=== PATIENT | male | born 1985 | race Caucasian/White ===

== ENCOUNTER 2017-02-10 07:07 | Emergency (ER) | payer BC ==
[2017-02-10 07:15] VITALS: BP 137/67
--- NOTE | 2017-02-10 07:29 | UC ---
Eye Complaint HPI - HPI Summary HPI Summary: bilateral eye redness x 1 day, + white discharge, no eye pain , no change if vision + nasal congestion , no cough, no fever - History of Current Complaint Chief Complaint: UCEye Stated Complaint: EYE COMPLAINT Time Seen by Provider: 02/10/17 07:21 Hx Obtained From: Patient Onset/Duration: Gradual Onset, Lasting Days - 1, Still Present Timing: Constant Severity Initially: Moderate Severity Currently: Moderate Location of Injury: Conjunctiva Aggravating Factor(s): Nothing Alleviating Factor(s): Nothing Associated Signs And Symptoms: Positive: Drainage (Purulent) - bilateral. Negative: Photophobia, Vision Impairment Bilateral, Vision Impairment Right, Vision Impairment Left, Fever, Swelling - Allergies/Home Medications Allergies/Adverse Reactions: Allergies Allergy/AdvReac Type Severity Reaction Status Date / Time No Known Allergies Allergy Verified 02/10/17 07:15 PMH/Surg Hx/FS Hx/Imm Hx Previously Healthy: Yes - Surgical History Surgical History: Yes Surgery Procedure, Year, and Place: Tonsillectomy. Left knee repair - Family History Known Family History: Negative: Diabetes - Social History Alcohol Use: None Substance Use Type: None Smoking Status (MU): Never Smoked Tobacco Review of Systems Constitutional: Negative Skin: Negative Eyes: Drainage, Eye Redness ENT: Nasal Discharge Respiratory: Cough Cardiovascular: Negative Gastrointestinal: Negative Genitourinary: Negative All Other Systems Reviewed And Are Negative: Yes Physical Exam Triage Information Reviewed: Yes Appearance: Well-Appearing, No Pain Distress, Well-Nourished Vital Signs: Initial Vital Signs Temp 97.4 F 02/10/17 07:09 Pulse 80 02/10/17 07:09 Resp 16 02/10/17 07:09 BP 137/67 02/10/17 07:09 Pulse Ox 100 02/10/17 07:09 Vital Signs Reviewed: Yes Eye Exam: Normal Eyes: Positive: Conjunctiva Inflamed - bilateral, Discharge - bilateral ENT: Positive: Normal ENT inspection, Hearing grossly normal, Pharynx normal, Nasal congestion, Nasal drainage Neck: Positive: Supple, Nontender, No Lymphadenopathy Respiratory: Positive: Chest non-tender, Lungs clear, Normal breath sounds, No respiratory distress Cardiovascular: Positive: RRR, No Murmur, Pulses Normal Skin Exam: Normal Eye Complaint Course/Dx - Differential Dx/Diagnosis Provider Diagnoses: CONJUNCTIVITIS Discharge - Discharge Plan Condition: Stable Disposition: HOME Prescriptions: Tobramycin/Dexameth OPTH.SUSP* [Tobradex 0.3-0.1%*] 1 drop BOTH EYES Q4H #1 btl Patient Education Materials: Conjunctivitis (ED) Referrals: Amy Valdes MD [Primary Care Provider] - 5 Days
== END 2017-02-10 07:32 | disposition home or self-care (01) ==
LOC: UCCORT 07:07
DX: H10.33 Unspecified acute conjunctivitis, bilateral (principal)
CPT/HCPCS: 99202; G0463

== ENCOUNTER 2017-05-10 20:30 | Emergency (ER) | payer BC ==
[2017-05-10] MEDS ORDERED: Cephalexin CAP* 500 MG PO ONE (21:32)
--- NOTE | 2017-05-10 21:32 | UC ---
Skin Complaint HPI - HPI Summary HPI Summary: Pt presents with c/o "sore on end of nose" . Pt's daughter was diagnosed and treated for impetigo and was treated with oral antibiotic as mupuricin was improving infection. Pt has been using pt's mupuricin with no imporvement. Pt reports that tip of right side nostril is crusted over each morning with sood colored crust. - History of Current Complaint Chief Complaint: UCSkin Time Seen by Provider: 05/10/17 21:29 Stated Complaint: RASH ON NOSE Hx Obtained From: Patient Onset/Duration: Sudden Onset, Lasting Days, Still Present Skin Exposure Onset/Duration: Days Ago Timing: Constant Onset Severity: Mild Current Severity: Mild Location: Discrete, Nose Character: Redness, Painful Aggravating: Touch Alleviating: Unknown Associated Signs & Symptoms: Positive: Drainage - sood, Tenderness Related History: Other: - known exposure to impetigo - Allergy/Home Medications Allergies/Adverse Reactions: Allergies Allergy/AdvReac Type Severity Reaction Status Date / Time No Known Allergies Allergy Verified 05/10/17 21:16 Review of Systems Constitutional: Negative Skin: Other - sore end of right side of nose Eyes: Negative ENT: Other - mild erythema with sood colored draiange from eraser size sore on end of right side of nose Respiratory: Negative Cardiovascular: Negative Gastrointestinal: Negative Genitourinary: Negative Motor: Negative Neurovascular: Negative Musculoskeletal: Negative Neurological: Negative Psychological: Negative All Other Systems Reviewed And Are Negative: Yes PMH/Surg Hx/FS Hx/Imm Hx Previously Healthy: Yes - Surgical History Surgical History: Yes Surgery Procedure, Year, and Place: Tonsillectomy. Left knee repair 1998 - Family History Known Family History: Negative: Diabetes - Social History Occupation: Employed Full-time Lives: With Family Alcohol Use: None Substance Use Type: None Smoking Status (MU): Never Smoked Tobacco Have You Smoked in the Last Year: No Physical Exam Triage Information Reviewed: Yes Appearance: Well-Appearing Vital Signs: Initial Vital Signs Temp 98.3 F 05/10/17 21:17 Pulse 79 05/10/17 21:17 Resp 16 05/10/17 21:17 BP 137/79 05/10/17 21:17 Pulse Ox 100 05/10/17 21:17 Vital Signs Reviewed: Yes Eye Exam: Normal ENT Exam: Other - eraser size erythematous area on end of right side of nose/ nostril with sood discharge ENT: Positive: Other: Neck exam: Normal Respiratory Exam: Normal Cardiovascular Exam: Normal Musculoskeletal Exam: Normal Neurological Exam: Normal Psychological Exam: Normal Skin Exam: Other - eraser size, erytheamtous area with sood discharge on right side of distal end of nose/nostril Course/Dx - Differential Diagnoses - Skin Complaint Differential Diagnoses: Impetigo - Diagnoses Provider Diagnoses: impetigo Discharge - Discharge Plan Condition: Stable Disposition: HOME Prescriptions: Cephalexin CAP* [Keflex 500 CAP*] 500 mg PO Q12H #10 cap Patient Education Materials: Impetigo (ED) Referrals: Jessica Boswell MD [Primary Care Provider] - If Needed
[2017-05-10 21:36] VITALS: BP 137/79
== END 2017-05-10 21:40 | disposition home or self-care (01) ==
LOC: UCCORT 20:30
DX: L01.00 Impetigo, unspecified (principal)
CPT/HCPCS: 99212; A9270-GY; G0463

== ENCOUNTER 2017-05-24 08:25 | Emergency (ER) | payer BC ==
[2017-05-24 08:44] VITALS: BP 129/80
--- NOTE | 2017-05-24 08:53 | UC ---
Skin Complaint HPI - HPI Summary HPI Summary: 3 areas of scaly, yellow colored lesions on the face, under the nose, on the cheek and forhead, has been using muciprocin with some relief. - History of Current Complaint Chief Complaint: UCSkin Time Seen by Provider: 05/24/17 08:41 Stated Complaint: RASH Hx Obtained From: Patient Onset/Duration: Sudden Onset, Lasting Days Skin Exposure Onset/Duration: Days Ago Timing: Constant Onset Severity: Moderate Current Severity: Moderate Location: Face Aggravating: Nothing Alleviating: Nothing - Allergy/Home Medications Allergies/Adverse Reactions: Allergies Allergy/AdvReac Type Severity Reaction Status Date / Time No Known Allergies Allergy Verified 05/24/17 08:31 Home Medications: Home Medications Misc Natural Products [Osteo Bi-Flex Joint Shiel] 2 tab PO DAILY 05/24/17 [ History Confirmed 05/24/17] Mupirocin 2% CREAM* [Bactroban 2% CREAM*] 1 applic TOPICAL BID PRN 05/24/17 [ History Confirmed 05/24/17] Review of Systems Constitutional: Negative Skin: Rash Eyes: Negative ENT: Negative Respiratory: Negative Cardiovascular: Negative Gastrointestinal: Negative Genitourinary: Negative Motor: Negative Neurovascular: Negative Musculoskeletal: Negative Neurological: Negative Psychological: Negative All Other Systems Reviewed And Are Negative: Yes PMH/Surg Hx/FS Hx/Imm Hx Previously Healthy: Yes - Surgical History Surgical History: Yes Surgery Procedure, Year, and Place: Tonsillectomy. Left knee repair - Family History Known Family History: Negative: Diabetes - Social History Alcohol Use: Rare Substance Use Type: None Smoking Status (MU): Never Smoked Tobacco Have You Smoked in the Last Year: No Physical Exam Triage Information Reviewed: Yes Appearance: Well-Appearing, Well-Nourished, Pain Distress Vital Signs: Initial Vital Signs Temp 98.1 F 05/24/17 08:33 Pulse 77 05/24/17 08:33 Resp 16 05/24/17 08:33 BP 129/80 05/24/17 08:33 Pulse Ox 100 05/24/17 08:33 Vital Signs Reviewed: Yes Eye Exam: Normal ENT Exam: Normal Dental Exam: Normal Neck exam: Normal Respiratory Exam: Normal Cardiovascular Exam: Normal Abdominal Exam: Normal Bowel Sounds: Positive: Present Musculoskeletal Exam: Normal Neurological Exam: Normal Skin: Positive: rashes - 3 mitzi of yellowish crusty patches, the one under the nose draining clear fluid Course/Dx - Course Course Of Treatment: hx obtained, exam performed ,meds reviewed, treated for impetigo - Differential Diagnoses - Skin Complaint Differential Diagnoses: Abscess, Impetigo, Medication; Adverse Reaction, Urticaria - Diagnoses Provider Diagnoses: impetigo Discharge - Discharge Plan Condition: Stable Disposition: HOME Patient Education Materials: Impetigo (ED) Additional Instructions: 1. Use the medication as prescribed. 2. Keep draining areas covered 3. Follow up if symptoms continue to progress.
== END 2017-05-24 09:02 | disposition home or self-care (01) ==
LOC: UCCORT 08:25
DX: L01.00 Impetigo, unspecified (principal)
CPT/HCPCS: 99212; G0463

== ENCOUNTER 2017-12-19 13:52 | Emergency (ER) | payer BC ==
--- NOTE | 2017-12-19 15:09 | UC ---
Back Pain HPI - HPI Summary HPI Summary: 32 yo Wm c/o acute sacral and coccygeal pain x 2-3 days s/p reaching for a bottle in the bottom shelf, also c/o chills and achiness x few days, s/p one course of outpt po abx but still c/o some residual throat pains. - History of Current Complaint Chief Complaint: UCBackPain Stated Complaint: BACK PAIN,SORE THROAT Time Seen by Provider: 12/19/17 14:52 Hx Obtained From: Patient Onset/Duration: Lasting Days Timing: Constant Pain Intensity: 6 Aggravating Factor(s): Movement Alleviating Factor(s): Rest - Allergies/Home Medications Allergies/Adverse Reactions: Allergies Allergy/AdvReac Type Severity Reaction Status Date / Time No Known Allergies Allergy Verified 12/19/17 14:11 Home Medications: Home Medications Acetaminophen 650 mg PO ONCE PRN 12/19/17 [History Confirmed 12/19/17] Ibuprofen TAB* [Advil TAB*] 600 mg PO ONCE PRN 12/19/17 [History Confirmed 12/19] PMH/Surg Hx/FS Hx/Imm Hx - Additional Past Medical History Additional PMH: none Previously Healthy: Yes - Surgical History Surgical History: Yes Surgery Procedure, Year, and Place: Tonsillectomy. Left knee repair - Family History Known Family History: Negative: Diabetes - Social History Alcohol Use: Rare Substance Use Type: None Smoking Status (MU): Never Smoked Tobacco Have You Smoked in the Last Year: No Review of Systems Constitutional: Chills, Fatigue Skin: Negative Eyes: Negative ENT: Sore Throat Cardiovascular: Negative Gastrointestinal: Negative Genitourinary: Negative Motor: Negative Neurovascular: Negative Musculoskeletal: Decreased ROM, Other: - LBP Neurological: Negative Psychological: Negative All Other Systems Reviewed And Are Negative: Yes Physical Exam Triage Information Reviewed: Yes Appearance: Well-Appearing Vital Signs: Initial Vital Signs Temp 36.2 C 12/19/17 14:06 Pulse 108 12/19/17 14:06 Resp 16 12/19/17 14:06 BP 124/81 12/19/17 14:06 Pulse Ox 97 12/19/17 14:06 Eye Exam: Normal ENT: Positive: Pharyngeal erythema Dental Exam: Normal Neck exam: Normal Neck: Positive: 1 Respiratory Exam: Normal Cardiovascular Exam: Normal Abdominal Exam: Normal Musculoskeletal: Positive: Other: - sacral and coccygeal tenderness in certain positions, ROM restricted due to pain Neurological Exam: Normal Neurological: Positive: Alert, Other: - mild radiculopathy from coccyx to left buttock intermittently Psychological Exam: Normal Skin Exam: Normal Back Pain Course/Dx - Course Course Of Treatment: XR of lumbaosacrum and coccyx- no acute fx noted but there is some narrowing of L5 and S1disc space. If pain and radiculopathy persists follow up with neurosurgery and further evaluation with possible MRI - Differential Dx/Diagnosis Provider Diagnoses: sacral and coccygeal paraspinal spasm. Recurrent strep pharyngitis Discharge - Discharge Plan Condition: Stable Disposition: HOME Prescriptions: ceFUROXime TAB(*) [Ceftin TAB 250 MG(*)] 500 mg PO BID 7 Days #14 tab tiZANidine TAB* [Zanaflex TAB*] 4 mg PO BEDTIME 5 Days #5 tab Patient Education Materials: Strep Throat (ED), Muscle Spasm (ED) Referrals: Jessica Boswell MD [Primary Care Provider] - Reji Rich MD [Medical Doctor] - Additional Instructions: follow up with neurosurgery
--- NOTE | 2017-12-19 15:43 | RAD ---
HISTORY: Low back pain, sacral pain COMPARISONS: None VIEWS: 3, frontal, outlet, and lateral views of the sacrum and coccyx FINDINGS: BONE DENSITY: Normal. BONES: There is no displaced fracture. JOINTS: There is no arthropathy. ALIGNMENT: There is no dislocation. SOFT TISSUES: Unremarkable. OTHER FINDINGS: None. IMPRESSION: NO ACUTE OSSEOUS INJURY OF THE SACRUM AND COCCYX. PLAIN FILMS ARE RELATIVELY INSENSITIVE TO NONDISPLACED FRACTURES OF THE SACRUM AND COCCYX. IF THERE IS PERSISTENT CLINICAL CONCERN FOR SACROCOCCYGEAL OSSEOUS PATHOLOGY, BONE SCANNING MAY BE MORE SENSITIVE
--- NOTE | 2017-12-19 15:43 | RAD ---
HISTORY: Low back pain, left medial leg pain, sacrococcygeal pain COMPARISONS: None VIEWS: 3 , Frontal, lateral, and coned-down lateral sacral views of the lumbar spine FINDINGS: ALIGNMENT: The alignment is normal. VERTEBRAL BODIES: The vertebral body heights are normal. The interpedicular distances are normal. JOINTS: The facet joints are normal. INTERVERTEBRAL DISCS: There is mild loss of intervertebral disc height at L5-S1. SOFT TISSUE: Unremarkable. OTHER: The pelvis is unremarkable. The lung bases are clear. IMPRESSION: MILD DEGENERATIVE DISC DISEASE
[2017-12-19 16:03] VITALS: BP 135/78
== END 2017-12-19 16:35 | disposition home or self-care (01) ==
LOC: UCEAST 13:52
DX: M62.830 Muscle spasm of back (principal); J02.0 Streptococcal pharyngitis
CPT/HCPCS: 72100; 72220; 81003; 87502; 87651; 99212; G0463

== ENCOUNTER 2018-05-03 17:36 | Emergency (ER) | payer BC ==
[2018-05-03 19:16] VITALS: BP 125/83
[2018-05-03] MEDS ORDERED: Amoxicillin PO (*) 500 MG CAP PO ONE (19:53)
--- NOTE | 2018-05-03 19:55 | UC ---
UC General HPI - HPI Summary HPI Summary: sore throat and sweaty with chills x 3 days. children with strep throat - History of Current Complaint Chief Complaint: UCGeneralIllness Stated Complaint: SORE THROAT,CHILLS Time Seen by Provider: 05/03/18 19:48 Hx Obtained From: Patient Onset/Duration: Gradual Onset Timing: Constant Pain Intensity: 2 Aggravating: nothing Alleviating: nothing Associated Signs & Symptoms: Positive: Fever - Allergy/Home Medications Allergies/Adverse Reactions: Allergies Allergy/AdvReac Type Severity Reaction Status Date / Time No Known Allergies Allergy Verified 05/03/18 19:16 PMH/Surg Hx/FS Hx/Imm Hx Previously Healthy: Yes - Surgical History Surgical History: Yes Surgery Procedure, Year, and Place: Tonsillectomy. Left knee repair - Family History Known Family History: Positive: None Negative: Diabetes - Social History Occupation: Employed Full-time Lives: With Family Alcohol Use: Rare Substance Use Type: None Smoking Status (MU): Never Smoked Tobacco Have You Smoked in the Last Year: No - Immunization History Vaccination Up to Date: Yes Review of Systems Constitutional: Fever, Chills Skin: Negative Eyes: Negative ENT: Sore Throat Respiratory: Negative Cardiovascular: Negative Gastrointestinal: Negative Genitourinary: Negative Motor: Negative Neurovascular: Negative Musculoskeletal: Negative Neurological: Negative Psychological: Negative Is Patient Immunocompromised?: No All Other Systems Reviewed And Are Negative: Yes Physical Exam Triage Information Reviewed: Yes Appearance: Well-Appearing Vital Signs: Initial Vital Signs Temp 100 F 05/03/18 19:11 Pulse 124 05/03/18 19:11 Resp 16 05/03/18 19:11 BP 125/83 05/03/18 19:11 Pulse Ox 100 05/03/18 19:11 Vital Signs Reviewed: Yes Eyes: Positive: Conjunctiva Clear ENT: Positive: Pharyngeal erythema, TMs normal, Uvula midline. Negative: Nasal congestion, Nasal drainage, Tonsillar swelling, Tonsillar exudate, Trismus, Muffled voice, Hoarse voice Neck: Positive: Supple, Nontender, Enlarged Nodes @ - peritonsilar Respiratory: Positive: Lungs clear, Normal breath sounds Cardiovascular: Positive: RRR, No Murmur Abdomen Description: Positive: Nontender, No Organomegaly, Soft Bowel Sounds: Positive: Present Musculoskeletal: Positive: ROM Intact Neurological: Positive: Alert Psychological: Positive: Age Appropriate Behavior Skin Exam: Normal Diagnostics - Laboratory Diagnostic Studies Completed/Ordered: rapid strep is + Course/Dx - Differential Dx - Multi-Symptom Provider Diagnoses: strep throat Discharge - Sign-Out/Discharge Documenting (check all that apply): Patient Departure - Discharge Plan Condition: Stable Disposition: HOME Prescriptions: Amoxicillin PO (*) [Amoxicillin 500 MG CAP*] 500 mg PO Q12H #20 cap Patient Education Materials: Strep Throat (DC) Referrals: Jessica Boswell MD [Primary Care Provider] - 7 Days - Billing Disposition and Condition Condition: STABLE Disposition: Home
== END 2018-05-03 20:03 | disposition home or self-care (01) ==
LOC: UCCORT 17:36
DX: J02.0 Streptococcal pharyngitis (principal)
CPT/HCPCS: 87651; 99212; A9270-GY; G0463

== ENCOUNTER 2018-06-27 21:28 | Emergency (ER) | payer BC ==
[2018-06-27 21:49] VITALS: BP 137/62
--- NOTE | 2018-06-27 22:08 | UC ---
Lower Extremity/Ankle HPI - HPI Summary HPI Summary: Right great toe has ingrown toenail for several days, for the past few patient has noticed bloody discharge on its borders and has been draining it twice daily. He states he has soaked toe in Epson salts but nail continues to supurate. - History of Current Complaint Chief Complaint: UCLowerExtremity Stated Complaint: SORE RIGHT BIG TOE Time Seen by Provider: 06/27/18 21:59 Hx Obtained From: Patient Onset/Duration: Sudden Onset Severity Initially: Mild Severity Currently: None Pain Intensity: 3 Aggravating Factor(s): Standing, Ambulation Alleviating Factor(s): Rest, Elevation Able to Bear Weight: Yes - Risk Factors Gout Risk Factors: Negative DVT Risk Factors: Negative Septic Arthritis Risk Factor: Negative - Allergies/Home Medications Allergies/Adverse Reactions: Allergies Allergy/AdvReac Type Severity Reaction Status Date / Time No Known Allergies Allergy Verified 06/27/18 21:47 Home Medications: Home Medications Cetirizine* [ZyrTEC 10 MG TAB*] 10 mg PO DAILY 06/27/18 [History Confirmed 06/27] PMH/Surg Hx/FS Hx/Imm Hx Previously Healthy: Yes - Surgical History Surgical History: Yes Surgery Procedure, Year, and Place: Tonsillectomy. Left knee repair - Family History Known Family History: Positive: Cardiac Disease Negative: Diabetes - Social History Alcohol Use: None Substance Use Type: None Smoking Status (MU): Never Smoked Tobacco Have You Smoked in the Last Year: No - Immunization History Most Recent Tetanus Shot: UTD Vaccination Up to Date: Yes Review of Systems Constitutional: Negative Musculoskeletal: Other: - discharge from toenail All Other Systems Reviewed And Are Negative: Yes Physical Exam Triage Information Reviewed: Yes Appearance: Well-Appearing, No Pain Distress, Well-Nourished Vital Signs: Initial Vital Signs Temp 97.9 F 06/27/18 21:42 Pulse 71 06/27/18 21:42 Resp 14 06/27/18 21:42 BP 137/62 06/27/18 21:42 Pulse Ox 100 06/27/18 21:42 Vital Signs Reviewed: Yes Eyes: Positive: Conjunctiva Clear ENT: Positive: Hearing grossly normal Neck: Positive: Supple Musculoskeletal: Positive: Strength Intact, ROM Intact, No Edema, Other: - erythema on distal half of right toe, serosanguin d/c on medial aspect of nailbed. No fluctuation, no induration of surrounding soft tissue. Neurological: Positive: Alert, Muscle Tone Normal Psychological: Positive: Age Appropriate Behavior Skin Exam: Normal Lower Extremity Course/Dx - Course Course Of Treatment: Patient with paronychia of right big toe, mininally inbedded toenail on medial aspect of nailbed, to start keflex as prescribed for 5 days, follow up with podiatry. - Differential Dx/Diagnosis Provider Diagnoses: paronychia. ingrown toe nail Discharge - Sign-Out/Discharge Documenting (check all that apply): Patient Departure All imaging exams completed and their final reports reviewed: No Studies - Discharge Plan Condition: Stable Disposition: HOME Prescriptions: Cephalexin CAP* [Keflex CAP*] 500 mg PO TID 5 Days #15 cap Patient Education Materials: Cephalexin (By mouth), Paronychia (ED) Referrals: Jessica Boswell MD [Primary Care Provider] - - Billing Disposition and Condition Condition: STABLE Disposition: Home
[2018-06-27] MEDS ORDERED: Cephalexin CAP* 500 MG PO ONE (22:16)
== END 2018-06-27 22:27 | disposition home or self-care (01) ==
LOC: UCCORT 21:28
CPT/HCPCS: 99212; A9270-GY; G0463

== ENCOUNTER 2018-12-19 13:57 | Emergency (ER) | payer BC ==
[2018-12-19] MEDS ORDERED: Tetan/Diph/Pertus SYR(Tdap)* 0.5 ML SYR(BOOSTRIX) use SYR IM ONE (14:07)
[2018-12-19 14:16] VITALS: BP 130/74
--- NOTE | 2018-12-19 14:19 | UC ---
Hand/Wrist HPI - HPI Summary HPI Summary: 33 yo male presents with left thumb nail injury. He tells me that about 30min [employer] he was using a drill and it slipped and the drill bit went into the center of his left thumbnail. He washed the area, applied a bandage, and came to . Thinks his last tetanus was 3 years ago. - History Of Current Complaint Chief Complaint: UCLaceration Stated Complaint: PUNCTURE WOUND Time Seen by Provider: 12/19/18 14:19 Hx Obtained From: Patient Onset/Duration: Sudden Onset Severity Initially: Moderate Severity Currently: Mild Pain Intensity: 4 Pain Scale Used: 0-10 Numeric - Allergies/Home Medications Allergies/Adverse Reactions: Allergies Allergy/AdvReac Type Severity Reaction Status Date / Time No Known Allergies Allergy Verified 12/19/18 14:10 Home Medications: Home Medications Glucosamine/D3/Boswellia Jaimee [Osteo Bi-Flex Tablet] 1 each PO DAILY 12/19/18 [ History Confirmed 12/19/18] PMH/Surg Hx/FS Hx/Imm Hx - Additional Past Medical History Additional PMH: None - Surgical History Surgical History: Yes Surgery Procedure, Year, and Place: Tonsillectomy. Left knee repair - Family History Known Family History: Positive: None, Cardiac Disease Negative: Diabetes - Social History Occupation: Employed Full-time Lives: With Family Alcohol Use: None Substance Use Type: None Smoking Status (MU): Never Smoked Tobacco Have You Smoked in the Last Year: No - Immunization History Most Recent Tetanus Shot: UTD Vaccination Up to Date: Yes Review of Systems All Other Systems Reviewed And Are Negative: Yes Constitutional: Positive: Negative Skin: Positive: Other - Left nail puncture wound Respiratory: Positive: Negative Cardiovascular: Positive: Negative Gastrointestinal: Positive: Negative Neurovascular: Positive: Negative Neurological: Positive: Negative Psychological: Positive: Negative Physical Exam - Summary Physical Exam Summary: GENERAL: NAD. WDWN. No pain distress. SKIN: LEFT THUMB: Nail with central puncture wound partially through the nail bed. Splintering of the nail in an oblique fashion distally through the nail plate with partial avulsion. Scant bleeding. Appears clean and without FB. CHEST: No accessory muscle use. Breathing comfortably and in no distress. CV: Pulses intact. Cap refill <2seconds MSK: Left thumb FROM. NEURO: Alert. PSYCH: Age appropriate behavior. Triage Information Reviewed: Yes Vital Signs: Initial Vital Signs Temp 97.5 F 12/19/18 14:12 Pulse 76 12/19/18 14:12 Resp 18 12/19/18 14:12 BP 130/74 12/19/18 14:12 Pulse Ox 99 12/19/18 14:12 Vital Signs Reviewed: Yes Procedures - Laceration/Wound Repair 1 Location: Other - finger Description: Irregular Betadine Prep?: No Irrigated w/ Saline (ccs): 250 Laceration/Wound Explored: clean Layer Closure?: No Sterile Dressing Applied?: Yes - xeroform Hand/Wrist Course/Dx - Course Course Of Treatment: XR: REPORT AND IMPRESSION: #. Irregularity at the distal nailbed with subcutaneous emphysema and suggestion of. punctate submillimeter radiopaque foreign bodies at the puncture site. Negative for. fracture or malalignment. The procedure was explained to the pt and all questions were answered. A time out was performed, witnessed, and signed. The area was irrigated with 250mL sterile saline. The partially avulsed nail plate would be catching on cloths and other materials - therefore was decided to be removed. Easily removed with iris scissors. Pt tolerated well. The wound was bandaged with xeroform and telfa. - Differential Dx/Diagnosis Provider Diagnosis: Puncture wound of thumb without foreign body with damage to nail, Nail avulsion , finger Discharge - Sign-Out/Discharge Documenting (check all that apply): Patient Departure All imaging exams completed and their final reports reviewed: Yes - Discharge Plan Condition: Stable Disposition: HOME Patient Education Materials: Nail Avulsion (ED), Nail Removal (ED) Referrals: Jessica Boswell MD [Primary Care Provider] - Additional Instructions: If you develop a fever, shortness of breath, chest pain, new or worsening symptoms - please call your PCP or go to the ED. 1) Keep the dressing clean, dry, and intact for the next 2-3 days - may change the outer layer of the dressing if it gets soiled 2) Keep covered at all times until well healed - Billing Disposition and Condition Condition: STABLE Disposition: Home - Attestation Statements Provider Attestation: I was available for consult. This patient was seen by the JOSSE. The patient was not presented to, seen by, or examined by me. -Noel
[2018-12-19] MEDS ORDERED: Lidocaine 2% PF * 5 ML VIAL INJ ONE (14:26)
[2018-12-19] MEDS ORDERED: Ibuprofen TAB* 600 MG PO ONE (14:26)
== END 2018-12-19 15:05 | disposition home or self-care (01) ==
LOC: UCEAST 13:57
DX: S61.132A Puncture wound without foreign body of left thumb with damage to nail, initial encounter (principal); S61.102A Unspecified open wound of left thumb with damage to nail, initial encounter; W29.8XXA Contact with other powered hand tools and household machinery, initial encounter; Y92.9 Unspecified place or not applicable
CPT/HCPCS: 11730; 99211; A9270-GY; G0463

== ENCOUNTER 2019-02-10 12:48 | Emergency (ER) | payer BC ==
--- OUTSIDE RECORDS SUMMARY | 2019-02-10 13:10 | XMS REPORT | Continuity of Care Document ---
:1985 External Reference #:[id number] Author Name Rosa Grier Care Team Providers Name Role Phone Jessica Boswell MD Primary Care Physician Unavailable Payers Date Identification Numbers Payment Provider Subscriber Effective: 2013 Policy Number: [id number] [employer] Gabriela Riddle PayID: [id number] [address] [address] JAYLA Garcia [address] Effective: 2011 Policy Number: [id number] [employer] Josh Riddle Expires: 2013 PayID: [id number] [address] [address] JAYLA Garcia [address] Advance Directives Description No Information Available Problems Date Description Provider Status Onset: 12/23/2017 Lumbar radiculopathy Reji Rich M.D. Active Onset: 07/31/2011 Lyme disease Amy Valdes M.D. 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 Doxycycline 09/21/ Active Capsules 100mg 42caps 01/24/19 A69.20 Steph Monohydrate 2018 reports MD Alphonso not taking si bid x 21 days Culturelle 12/06/ Active Capsules Jessica 2018 Mirian Boswell Arm Strap White 10/24/ Active Misc 1units apply to 719.43 Amy 2013 affected Valdes, arm just M.D. below elbow when active Osteo Bi-Flex 01/24/ Active Tablets 250-200mg 2 po qd Amy Regular 2012 Sabrina Valdes M.D. Zyrtec Allergy / Active Capsules 10mg 30caps 1 po qd Amy Mirian Valdes Ibuprofen / Active Capsules 200mg as needed Unknown Cephalexin 07/29/ Hx Tablets 500mg 21tabs 1 by mouth 2017 - three Elbert, 09/20/ times a M.D. 2017 day x 7 days Amoxicillin 05/03/ Hx Capsules 500mg 20caps Q12H Unknown 2017 - 2017 Aleve 12/06/ Hx Capsules 220mg Jessica 2018 - Elbert, 12/23/ M.D. 2017 Amoxicillin 12/06/ Hx Tablets 500mg 30tabs 1 by mouth 2017 - three Elbert, 12/16/ times a M.D. 2018 day x 10 days Augmentin 04/27/ Hx Tablets 875-125mg 20tabs one by Charis 2012 - mouth Lozano-You 10/24/ every 12 Mirian [place] 2014 hours for ten days Ibuprofen 04/27/ Hx Tablets 600mg 90tabs tid Charis 2012 - Lozano-You 12/06/ Mirian [place] 2017 Doxycycline / Hx Capsules 100mg 14caps One tablet Amy Hyclate 0000 - twice Keisha, 01/24/ daily M.D. 2012 until gone Tizanidine HCL / Hx Tablets 4mg Unknown 0000 - 2017 Immunizations CPT Code Status Date Vaccine Reaction Lot # [id number] Given 09/02/2016 Tdap - no immediate reaction [id number] Tetanus/Diptheria/Acellu noted ... hh lar Pertussis [id number] Given 09/02/2016 Influ Virus Vaccine, no reaction noted ,,, [id number] Quadrivalent, Split hh Virus, Im Fluzone not PF [id number] Given 10/01/2014 Fluzone Vaccine [id number] Given 07/31/2011 Influenza Virus 3Yrs & [id number] Over Vital Signs Date Vital Result Comment 01/24/2019 3:56pm Height 76 inches 6'4" Weight 224.00 lb Heart Rate 82 /min BP Systolic Sitting 141 mmHg BP Diastolic Sitting 83 mmHg Body Temperature 97.5 F O2 % BldC Oximetry 98 % BMI (Body Mass Index) 27.3 kg/m2 09/23/2018 11:49am Height 76 inches 6'4" Weight 228.00 lb Heart Rate 78 /min BP Systolic Sitting 118 mmHg BP Diastolic Sitting 88 mmHg O2 % BldC Oximetry 98 % BMI (Body Mass Index) 27.8 kg/m2 09/21/2018 1:00pm Height 76 inches 6'4" Weight 227.00 lb Heart Rate 89 /min BP Systolic Sitting 121 mmHg BP Diastolic Sitting 75 mmHg Body Temperature 97.3 F O2 % BldC Oximetry 98 % BMI (Body Mass Index) 27.6 kg/m2 07/29/2018 4:41pm Height 76 inches 6'4" Weight 227.00 lb Heart Rate 89 /min BP Systolic Sitting 120 mmHg BP Diastolic Sitting 78 mmHg O2 % BldC Oximetry 99 % BMI (Body Mass Index) 27.6 kg/m2 01/13/2018 1:54pm Height 76 inches 6'4" Weight 230.00 lb Heart Rate 70 /min BP Systolic Sitting 110 mmHg BP Diastolic Sitting 70 mmHg Pain Level 2 BMI (Body Mass Index) 28.0 kg/m2 12/23/2017 3:10pm Height 76 inches 6'4" Weight 230.00 lb BP Systolic Sitting 130 mmHg BP Diastolic Sitting 80 mmHg Pain Level 5 BMI (Body Mass Index) 28.0 kg/m2 09/02/2016 9:41am Weight 237.00 lb Heart Rate 98 /min BP Systolic Sitting 124 mmHg BP Diastolic Sitting 80 mmHg Respiratory Rate 15 /min Body Temperature 98.4 F O2 % BldC Oximetry 98 % 03/15/2014 8:40am Weight 243.00 lb Heart Rate 100 /min BP Systolic Sitting 132 mmHg BP Diastolic Sitting 80 mmHg 10/24/2013 11:14am Weight 239.00 lb Heart Rate 70 /min BP Systolic Sitting 122 mmHg BP Diastolic Sitting 80 mmHg 02/16/2013 3:55pm Weight 229.00 lb Heart Rate 72 /min BP Systolic Sitting 128 mmHg BP Diastolic Sitting 84 mmHg 01/24/2013 3:43pm Weight 230.00 lb Heart Rate 70 /min BP Systolic Sitting 130 mmHg BP Diastolic Sitting 84 mmHg 07/31/2011 10:45am Height 75.50 inches 6'3.50" Weight 214.00 lb Heart Rate 72 /min BP Systolic Sitting 122 mmHg l BP Diastolic Sitting 84 mmHg l Body Temperature 97.6 F BMI (Body Mass Index) 26.4 kg/m2 Results Test Date Facility Test Result H/L Range Note Laboratory test [facility] Culture SEE RESULT 1, 2 finding [address] [place] [address] [phone] Laboratory test [facility] Rapid Strep Negative Negative 3 finding [address] [place] [address] [phone] Laboratory test [facility] Rapid Strep POSITIVE Abnormal Negative 4 finding [address] [place] [address] [phone] Poc Urinalysis [facility] Poc Glucose, Negative Negative [address] [place] [address] [phone] Poc Bilirubin, Urine Negative Negative Poc Ketone, Urine Negative Negative Poc Specific [place], Urine <=1.005 Low 1.010-1.030 Poc Blood, Urine Trace-lysed Abnormal Negative Poc pH, Urine 6.0 N 5-9 Poc Protein, Urine Negative Negative Poc Urobilinogen, Urine 0.2 Negative Poc Nitrite, Urine Negative Negative Poc Leukocytes, Urine Negative Negative Poc Color, Urine Yellow Poc Clarity, Urine Clear 5 Rapid Influenza 12/19/2017 [facility] Influenza A NEGATIVE Negative 6 A & B Molecular [address] [place] [address] [phone] Influenza B Molecular NEGATIVE Negative Laboratory 12/19/2017 [facility] Rapid Strep POSITIVE Abnormal Negative 7 test finding [address] [place] [address] [phone] Basic 01/24/2013 [facility] Sodium 140 mmol/L 133-[address] [place] [address] [phone] Potassium 4.1 mmol/L 3.5-5.0 Chloride 103 mmol/L 101-111 Co2 Carbon Dioxide 30.0 mmol/L 22-32 Anion Gap 7.0 mmol/L 2-11 Glucose 82 mg/dL 70-100 Blood Urea Nitrogen 17 mg/dL 6-24 Creatinine 1.10 mg/dL 0.50-1.40 BUN/Creatinine Ratio 15.5 8-20 Calcium 9.8 mg/dL 8.1-9.9 Egfr Non- 79.1 >60 Egfr 101.8 >60 8 Laboratory test 01/24/2013 [facility] TSH (Thyroid 1.27 miu/mL 0.34-5.[address] [place] [address] Horm) [phone] Laboratory test 07/22/2011 [facility] Lyme Disease Negative Negative [address] [place] [address] [phone] 1 [id number] 2 SEE RESULT BELOW Name: JOSH RIDDLE : [address]: Pete Do MD Acct: [id number] Unit: [id number] AGE: 33 Location: [facility] Re06/21/18 SEX: M Status: DEP ER SPEC: [id number] GRISELDA: 06/21/18-1420 [facility] DR: Carolynn CABRERA REQ: [id number] RECD: 06/21/186949 STATUS: COMP [facility] DR: Jessica Do MD _ SOURCE: THROAT SPDESC: ORDERED: Throat Culture COMMENTS: [id number] Procedure Result Reported Site Throat Culture Final 06/23/18- 1130 ML Organism 1 NORMAL KIA Quantity 1+ Throat cultures are clinically indicated to detect the presence of group A strep, arcanobacterium and yeast. In certain cases, predominating organisms will be reported. * ML - Main Lab . END OF REPORT DEPARTMENT OF PATHOLOGY, [address] [place] [address] Marlon Guerra M.D. Director [facility] # [id number] 3 Swimming Coach: [id number] Swimming Coach: [id number] Swimming Coach: [id number] Swimming Coach: [id number] Swimming Coach: [id number] 8 Because ethnic data is not always readily available, this report includes an eGFR for both -Americans and non- Americans. The National Kidney Disease Education Program (NKDEP) does not endorse the use of the MDRD equation for patients that are not between the ages of 18 and 70, are , have extremes of body size, muscle mass, or nutritional status, or are non- or non-. According to the National Kidney Foundation, irrespective of diagnosis, the stage of the disease is based on the level of kidney function: Stage Description GFR(mL/min/1.73 m(2)) 1 Kidney damage with normal or decreased GFR 90 2 Kidney damage with mild decrease in GFR 60-89 3 Moderate decrease in GFR 30-59 4 Severe decrease in GFR 15-29 5 Kidney failure <15 (or dialysis) 9 Serologic response to B. burgdorferi infection is not detected, but cannot rule out early infection during which low or undetectable antibody levels to B. burgdorferi may be present. If clinically indicated, a new serum specimen should be submitted in 7-14 days. Test Performed by: [facility] Dpt of Lab Med and Pathology [address] [place] [id number] Wastewater Design Engineer: Solomon Gilbert III, M.D. Procedures Date Code Description Status 06/07/2013 10874 Inc & Removal Foreign Body Subcutaneous Tissues Completed 04/27/2013 31797 Short Arm Splint Application Completed 04/27/2013 59133 Short Arm Splint Application Completed 02/02/2013 62428 Holter Monitor Review (24 hr)dr review & interp only Completed 02/01/2013 27160 ECHO Transthoracic, Real-Time 2D With Doppler And Color Completed Flow 01/24/2013 23059 EKG Tracing & Interpretation Completed Encounters Type Date Location Provider Dx Diagnosis Office Visit 09/23/2018 [facility] Internal Pete Ritchie A69.20 Lyme disease, 11:40a Misty Israel M.D. unspecified [place] Office Visit 09/21/2018 [facility] Internal Steph Werner MD A69.20 Lyme disease, 1:00p Medicine unspecified Office Visit 07/29/2018 [facility] Internal Jessica L60.0 Ingrowing nail 4:20p Misty Boswell M.D. 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 lumbar region Office Visit 03/15/2014 [facility] Internal Amy Valdes, 799.51 Attention Or 8:40a Medicine Mirian Concentration Deficit Office Visit 10/24/2013 [facility] Internal Amy Valdes, 719.43 Pain Joint Forearm 11:20a Medicine Mirian 719.46 Pain Joint Lower Leg Office Visit 05/04/2013 Orthopedic Charis 881.02 Open Wound Wrist 11:45a Services Of Mirian Alejo W/O Complication C.M.A. Office Visit 04/27/2013 Orthopedic Charis 881.02 Open Wound Wrist 12:00p Services Of Mirian Alejo W/O Complication C.M.A. 719.43 Pain Joint Forearm Office Visit 02/16/2013 4:00p [facility] Internal Amy Valdes, 780.2 Syncope & Medicine MMeliton Collapse Office Visit 01/24/2013 4:00p [facility] Internal Amy Valdes, 780.2 Syncope & Medicine M.DPankaj Collapse Office Visit 07/31/2011 11:00a DO Not Use Amy Valdes, 088.81 [facility] V[facility] Need For Prophylactic Vaccination & Inoculation/Influenza Plan of Treatment 01/24/2019 - Thee Rooney, NPR21 Rash and other nonspecific skin eruptionNew Medication:Betamethasone Dipropionate 0.05 % - apply thin layer to affected areas twice daily.Comments:Have the bloodwork done to test for Lyme. Start using the steroid cream on the areas of concern. If there is no improvement or worsening please let me know.
[2019-02-10 13:14] VITALS: BP 131/69
--- NOTE | 2019-02-10 13:34 | UC ---
General HPI - HPI Summary HPI Summary: States he has ongoing issues with allergies. Takes zyrtec for years. WOrks night shifts with his contacts and often takes them out when his eyes feel dry. Last night he forgot to bring his glasses and his eyes became very red, itchy with persistent drainage. +Rhinorrhea. Has allergy eye drops. No fevers. Meds: reviewed. No issues with his vision. - History of Current Complaint Chief Complaint: UCEye Stated Complaint: BILATERAL EYE COMPLAINT Time Seen by Provider: 02/10/19 13:18 Pain Intensity: 0 - Allergy/Home Medications Allergies/Adverse Reactions: Allergies Allergy/AdvReac Type Severity Reaction Status Date / Time No Known Allergies Allergy Verified 02/10/19 13:14 PMH/Surg Hx/FS Hx/Imm Hx Previously Healthy: Yes - Surgical History Surgical History: Yes Surgery Procedure, Year, and Place: Tonsillectomy. Left knee repair - Family History Known Family History: Positive: None, Cardiac Disease Negative: Diabetes - Social History Alcohol Use: None Substance Use Type: None Smoking Status (MU): Never Smoked Tobacco Have You Smoked in the Last Year: No - Immunization History Most Recent Tetanus Shot: UTD Vaccination Up to Date: Yes Review of Systems All Other Systems Reviewed And Are Negative: Yes Eyes: Positive: Drainage, Eye Redness Physical Exam Triage Information Reviewed: Yes Appearance: Well-Appearing Vital Signs: Initial Vital Signs Temp 97.4 F 02/10/19 13:09 Pulse 74 02/10/19 13:09 Resp 18 02/10/19 13:09 BP 131/69 02/10/19 13:09 Pulse Ox 100 02/10/19 13:09 Eyes: Positive: Conjunctiva Inflamed, Discharge ENT: Positive: Normal ENT inspection Neck: Positive: Supple, Nontender Respiratory: Positive: Lungs clear, Normal breath sounds Cardiovascular: Positive: RRR, No Murmur Course/Dx - Course Course Of Treatment: This is a 33 yr old male with seasonal allergies c/o b/l eye redness and drainage Assessment Conjunctivitis Plan Start antibiotic eye drops as prescribed REcommend discarding current contacts Do not use contacts until infection and eye redness has cleared Consider changing to Allyson Trial of flonase as directed for allergies If symptoms persist or worsen, call your primary for further evaluation - Diagnoses Provider Diagnosis: Conjunctivitis, Seasonal allergies Discharge - Sign-Out/Discharge Documenting (check all that apply): Patient Departure All imaging exams completed and their final reports reviewed: No Studies - Discharge Plan Condition: Good Disposition: HOME Prescriptions: Fluticasone NASAL SPRAY 50MCG* [Flonase NASAL SPRAY 50MCG*] 2 spray BOTH NARES DAILY #1 btl Polymyx/Trimethoprim OPTH* [Polytrim OPHTH*] 3 drop BOTH EYES Q8H #1 btl Patient Education Materials: Conjunctivitis (ED) Referrals: Jessica Boswell MD [Primary Care Provider] - Additional Instructions: Start antibiotic eye drops as prescribed REcommend discarding current contacts Do not use contacts until infection and eye redness has cleared Consider changing to Allyson Trial of flonase as directed for allergies If symptoms persist or worsen, call your primary for further evaluation - Billing Disposition and Condition Condition: GOOD Disposition: Home
== END 2019-02-10 13:39 | disposition home or self-care (01) ==
LOC: UCCORT 12:48
DX: H10.9 Unspecified conjunctivitis (principal); J30.2 Other seasonal allergic rhinitis
CPT/HCPCS: 99212; G0463

== ENCOUNTER 2019-12-17 13:05 | Emergency (ER) | payer BC ==
--- OUTSIDE RECORDS SUMMARY | 2019-12-17 13:31 | XMS REPORT | Continuity of Care Document ---
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 Onset: 05/04/2019 Allergic rhinitis due to animals Carolynn Parsons M.D. Onset: 05/04/2019 Allergic rhinitis due to pollen Carolynn Parsons M.D. Onset: 05/04/2019 Chronic allergic conjunctivitis Carolynn Parsons M.D. Onset: 05/04/2019 Social History Type Date Description Comments Sex Unknown ETOH Use Rarely consumes alcohol Tobacco Use Start: Unknown Patient has never smoked Recreational Drug Use Denies Drug Use Allergies, Adverse Reactions, Alerts Description No Known Drug Allergies Medications Active Medications SIG Qnty Indications Ordering Provider Date Zyrtec Allergy 1 by mouth every Unknown 10mg day Capsules Lumify every day Unknown 0.025% Solution Flonase Sensimist 1 spray each Unknown nostril once a 27.5mcg/Merkel day Suspension Medications Administered in Office Medication SIG Qnty Indications Ordering Provider Date Injection Allergy Injection 12/15/2019 Injection Injection Allergy Injection 12/08/2019 Injection Injection Allergy Injection 12/01/2019 Injection Injection Allergy Injection 11/24/2019 Injection Injection Allergy Injection 11/17/2019 Injection Injection Allergy Injection 11/10/2019 Injection Injection Allergy Injection 11/03/2019 Injection Injection Allergy Injection 10/27/2019 Injection Injection Allergy Injection 10/20/2019 Injection Injection Allergy Injection 10/13/2019 Injection Injection Allergy Injection 10/06/2019 Injection Injection Allergy Injection 09/28/2019 Injection Injection Allergy Injection 09/21/2019 Injection Injection Allergy Injection 09/14/2019 Injection Injection Allergy Injection 09/07/2019 Injection Injection Allergy Injection 08/31/2019 Injection Injection Allergy Injection 08/24/2019 Injection Injection Allergy Injection 08/18/2019 Injection Injection Allergy Injection 08/10/2019 Injection Injection Allergy Injection 08/03/2019 Injection Injection Allergy Injection 07/27/2019 Injection Injection Allergy Injection 07/20/2019 Injection Injection Allergy Injection 07/13/2019 Injection Injection Allergy Injection 07/07/2019 Injection Injection Allergy Injection 06/28/2019 Injection Injection Allergy Injection 06/16/2019 Injection Injection Allergy Injection 06/09/2019 Injection Injection Allergy Injection 06/03/2019 Injection Injection Allergy Injection 05/27/2019 Injection Immunizations Description No Information Available Vital Signs Date Vital Result Comment 10/06/2019 8:51am Height 76 inches 6'4" Weight 231.00 lb Weight 104.782 kg Respiratory Rate 16 /min Heart Rate 93 /min O2 % BldC Oximetry 98 % BP Systolic 105 mmHg BP Diastolic 68 mmHg BMI (Body Mass Index) 28.1 kg/m2 05/20/2019 10:31am Height 76 inches 6'4" Weight 231.00 lb Weight 104.782 kg Respiratory Rate 18 /min Heart Rate 83 /min O2 % BldC Oximetry 99 % BP Systolic 115 mmHg BP Diastolic 62 mmHg BMI (Body Mass Index) 28.1 kg/m2 Results Description No Information Available Procedures Date Code Description Status 12/15/2019 04471 Injection Completed 12/08/2019 71044 Injection Completed 12/01/2019 98849 Injection Completed 11/24/2019 10880 Injection Completed 11/17/2019 39711 Injection Completed 11/10/2019 25014 Injection Completed 11/03/2019 66304 Injection Completed 10/27/2019 38825 Injection Completed 10/20/2019 95417 Injection Completed 10/13/2019 77670 Extract 1-10 Completed 10/13/2019 40628 Injection Completed 10/06/2019 08009 Injection Completed 09/28/2019 23170 Injection Completed 09/21/2019 48405 Injection Completed 09/14/2019 43413 Injection Completed 09/07/2019 60207 Injection Completed 08/31/2019 34887 Injection Completed 08/24/2019 17044 Injection Completed 08/18/2019 90248 Injection Completed 08/10/2019 18014 Injection Completed 08/03/2019 50940 Extract 1-10 Completed 08/03/2019 66404 Injection Completed 07/27/2019 73373 Injection Completed 07/20/2019 53565 Injection Completed 07/13/2019 37447 Injection Completed 07/07/2019 61380 Injection Completed 06/28/2019 71846 Injection Completed Medical Devices Description No Information Available Encounters Type Date Location Provider Dx Diagnosis Office Visit 10/06/2019 [facility] Jagdish Agosto, Z23 Encounter for 9:00a [employer] immunization J30.1 Allergic rhinitis due to pollen H10.45 Other chronic allergic conjunctivitis J30.81 Allergic rhinitis due to animal (cat) (dog) hair and dander Assessments Date Code Description Provider 12/15/2019 J30.1 Allergic rhinitis due to pollen Carolynn Parsons M.D. 12/15/2019 J30.1 Allergic rhinitis due to pollen Allergy Injection 12/15/2019 J30.2 Other seasonal allergic rhinitis Craolynn Parsons M.D. 12/15/2019 J30.2 Other seasonal allergic rhinitis Allergy Injection 12/15/2019 J30.81 Allergic rhinitis due to animal (cat) (dog) Carolynn Parsons M.D. hair and dander 12/15/2019 J30.81 Allergic rhinitis due to animal (cat) (dog) Allergy Injection hair and dander 12/15/2019 J30.89 Other allergic rhinitis Carolynn Parsons M.D. 12/15/2019 J30.89 Other allergic rhinitis Allergy Injection 12/08/2019 J30.1 Allergic rhinitis due to pollen Carolynn Parsons M.D. 12/08/2019 J30.1 Allergic rhinitis due to pollen Allergy Injection 12/08/2019 J30.2 Other seasonal allergic rhinitis Carolynn Parsons M.D. 12/08/2019 J30.2 Other seasonal allergic rhinitis Allergy Injection 12/08/2019 J30.81 Allergic rhinitis due to animal (cat) (dog) Carolynn Parsons M.D. hair and dander 12/08/2019 J30.81 Allergic rhinitis due to animal (cat) (dog) Allergy Injection hair and dander 12/08/2019 J30.89 Other allergic rhinitis Carolynn Parsons M.D. 12/08/2019 J30.89 Other allergic rhinitis Allergy Injection 12/01/2019 J30.1 Allergic rhinitis due to pollen Carolynn Parsons M.D. 12/01/2019 J30.1 Allergic rhinitis due to pollen Allergy Injection 12/01/2019 J30.2 Other seasonal allergic rhinitis Carolynn Parsons M.D. 12/01/2019 J30.2 Other seasonal allergic rhinitis Allergy Injection 12/01/2019 J30.81 Allergic rhinitis due to animal (cat) (dog) Carolynn Parsons M.D. hair and dander 12/01/2019 J30.81 Allergic rhinitis due to animal (cat) (dog) Allergy Injection hair and dander 12/01/2019 J30.89 Other allergic rhinitis Carolynn Parsons M.D. 12/01/2019 J30.89 Other allergic rhinitis Allergy Injection 11/24/2019 J30.1 Allergic rhinitis due to pollen Carolynn Parsons M.D. 11/24/2019 J30.1 Allergic rhinitis due to pollen Allergy Injection 11/24/2019 J30.2 Other seasonal allergic rhinitis Carolynn Parsons M.D. 11/24/2019 J30.2 Other seasonal allergic rhinitis Allergy Injection 11/24/2019 J30.81 Allergic rhinitis due to animal (cat) (dog) Carolynn Parsons M.D. hair and dander 11/24/2019 J30.81 Allergic rhinitis due to animal (cat) (dog) Allergy Injection hair and dander 11/24/2019 J30.89 Other allergic rhinitis Carolynn Parsons M.D. 11/24/2019 J30.89 Other allergic rhinitis Allergy Injection 11/17/2019 J30.1 Allergic rhinitis due to pollen Carolynn Parsons M.D. 11/17/2019 J30.1 Allergic rhinitis due to pollen Allergy Injection 11/17/2019 J30.2 Other seasonal allergic rhinitis Carolynn Parsons M.D. 11/17/2019 J30.2 Other seasonal allergic rhinitis Allergy Injection 11/17/2019 J30.81 Allergic rhinitis due to animal (cat) (dog) Carolynn Parsons M.D. hair and dander 11/17/2019 J30.81 Allergic rhinitis due to animal (cat) (dog) Allergy Injection hair and dander 11/17/2019 J30.89 Other allergic rhinitis Carolynn Parsons M.D. 11/17/2019 J30.89 Other allergic rhinitis Allergy Injection 11/10/2019 J30.1 Allergic rhinitis due to pollen Carolynn Parsons M.D. 11/10/2019 J30.1 Allergic rhinitis due to pollen Allergy Injection 11/10/2019 J30.2 Other seasonal allergic rhinitis Carolynn Parsons M.D. 11/10/2019 J30.2 Other seasonal allergic rhinitis Allergy Injection 11/10/2019 J30.81 Allergic rhinitis due to animal (cat) (dog) Carolynn Parsons M.D. hair and dander 11/10/2019 J30.81 Allergic rhinitis due to animal (cat) (dog) Allergy Injection hair and dander 11/10/2019 J30.89 Other allergic rhinitis Carolynn Parsons M.D. 11/10/2019 J30.89 Other allergic rhinitis Allergy Injection 11/03/2019 J30.1 Allergic rhinitis due to pollen Carolynn Prasons M.D. 11/03/2019 J30.1 Allergic rhinitis due to pollen Allergy Injection 11/03/2019 J30.2 Other seasonal allergic rhinitis Carolynn Parsons M.D. 11/03/2019 J30.2 Other seasonal allergic rhinitis Allergy Injection 11/03/2019 J30.81 Allergic rhinitis due to animal (cat) (dog) Carolynn Parsons M.D. hair and dander 11/03/2019 J30.81 Allergic rhinitis due to animal (cat) (dog) Allergy Injection hair and dander 11/03/2019 J30.89 Other allergic rhinitis Carolynn Parsons M.D. 11/03/2019 J30.89 Other allergic rhinitis Allergy Injection 10/27/2019 J30.1 Allergic rhinitis due to pollen Carolynn Parsons M.D. 10/27/2019 J30.1 Allergic rhinitis due to pollen Allergy Injection 10/27/2019 J30.2 Other seasonal allergic rhinitis Carolynn Parsons M.D. 10/27/2019 J30.2 Other seasonal allergic rhinitis Allergy Injection 10/27/2019 J30.81 Allergic rhinitis due to animal (cat) (dog) Carolynn Parsons M.D. hair and dander 10/27/2019 J30.81 Allergic rhinitis due to animal (cat) (dog) Allergy Injection hair and dander 10/27/2019 J30.89 Other allergic rhinitis Carolynn Parsons M.D. 10/27/2019 J30.89 Other allergic rhinitis Allergy Injection 10/20/2019 J30.1 Allergic rhinitis due to pollen Carolynn Parsons M.D. 10/20/2019 J30.1 Allergic rhinitis due to pollen Allergy Injection 10/20/2019 J30.2 Other seasonal allergic rhinitis Carolynn Parsons M.D. 10/20/2019 J30.2 Other seasonal allergic rhinitis Allergy Injection 10/20/2019 J30.81 Allergic rhinitis due to animal (cat) (dog) Carolynn Parsons M.D. hair and dander 10/20/2019 J30.81 Allergic rhinitis due to animal (cat) (dog) Allergy Injection hair and dander 10/20/2019 J30.89 Other allergic rhinitis Carolynn Parsons M.D. 10/20/2019 J30.89 Other allergic rhinitis Allergy Injection 10/13/2019 J30.1 Allergic rhinitis due to pollen Carolynn Parsons M.D. 10/13/2019 J30.1 Allergic rhinitis due to pollen Allergy Injection 10/13/2019 J30.2 Other seasonal allergic rhinitis Carolynn Parsons M.D. 10/13/2019 J30.2 Other seasonal allergic rhinitis Allergy Injection 10/13/2019 J30.81 Allergic rhinitis due to animal (cat) (dog) Carolynn Parsons M.D. hair and dander 10/13/2019 J30.81 Allergic rhinitis due to animal (cat) (dog) Allergy Injection hair and dander 10/13/2019 J30.89 Other allergic rhinitis Carolynn Parsons M.D. 10/13/2019 J30.89 Other allergic rhinitis Allergy Injection 10/06/2019 J30.1 Allergic rhinitis due to pollen Carolynn Parsons M.D. 10/06/2019 Z23 Encounter for immunization JOSE RubinP- 10/06/2019 J30.1 Allergic rhinitis due to pollen Carolynn Parsons M.D. 10/06/2019 J30.1 Allergic rhinitis due to pollen Jagdish Agosto [facility] 10/06/2019 H10.45 Other chronic allergic conjunctivitis Carolynn Parsons M.D. 10/06/2019 J30.2 Other seasonal allergic rhinitis Carolynn Parsons M.D. 10/06/2019 H10.45 Other chronic allergic conjunctivitis Jagdish Agosto [facility] 10/06/2019 J30.81 Allergic rhinitis due to animal (cat) (dog) Carolynn Parsons M.D. hair and dander 10/06/2019 J30.81 Allergic rhinitis due to animal (cat) (dog) Jagdish Agosto [facility] hair and dander 10/06/2019 J30.1 Allergic rhinitis due to pollen Allergy Injection 10/06/2019 J30.81 Allergic rhinitis due to animal (cat) (dog) Carolynn Parsons M.D. hair and dander 10/06/2019 J30.2 Other seasonal allergic rhinitis Allergy Injection 10/06/2019 J30.89 Other allergic rhinitis Carolynn Parsons M.D. 10/06/2019 J30.81 Allergic rhinitis due to animal (cat) (dog) Allergy Injection hair and dander 10/06/2019 J30.89 Other allergic rhinitis Allergy Injection 09/28/2019 J30.1 Allergic rhinitis due to pollen Carolynn Parsons M.D. 09/28/2019 J30.1 Allergic rhinitis due to pollen Allergy Injection 09/28/2019 J30.2 Other seasonal allergic rhinitis Carolynn Parsons M.D. 09/28/2019 J30.2 Other seasonal allergic rhinitis Allergy Injection 09/28/2019 J30.81 Allergic rhinitis due to animal (cat) (dog) Carolynn Parsons M.D. hair and dander 09/28/2019 J30.81 Allergic rhinitis due to animal (cat) (dog) Allergy Injection hair and dander 09/28/2019 J30.89 Other allergic heriberto Parsons M.D. 09/28/2019 J30.89 Other allergic rhinitis Allergy Injection 09/21/2019 J30.1 Allergic rhinitis due to pollen Carolynn Parsons M.D. 09/21/2019 J30.1 Allergic rhinitis due to pollen Allergy Injection 09/21/2019 J30.2 Other seasonal allergic rhinitis Carolynn Parsons M.D. 09/21/2019 J30.2 Other seasonal allergic rhinitis Allergy Injection 09/21/2019 J30.81 Allergic rhinitis due to animal (cat) (dog) Carolynn Parsons M.D. hair and dander 09/21/2019 J30.81 Allergic rhinitis due to animal (cat) (dog) Allergy Injection hair and dander 09/21/2019 J30.89 Other allergic rhinitis Carolynn Parsons M.D. 09/21/2019 J30.89 Other allergic rhinitis Allergy Injection 09/14/2019 J30.1 Allergic rhinitis due to pollen Carolynn Parsons M.D. 09/14/2019 J30.1 Allergic rhinitis due to pollen Allergy Injection 09/14/2019 J30.2 Other seasonal allergic rhinitis Carolynn Parsons M.D. 09/14/2019 J30.2 Other seasonal allergic rhinitis Allergy Injection 09/14/2019 J30.81 Allergic rhinitis due to animal (cat) (dog) Carolynn Parsons M.D. hair and dander 09/14/2019 J30.81 Allergic rhinitis due to animal (cat) (dog) Allergy Injection hair and dander 09/14/2019 J30.89 Other allergic rhinitis Carolynn Parsons M.D. 09/14/2019 J30.89 Other allergic rhinitis Allergy Injection 09/07/2019 J30.1 Allergic rhinitis due to pollen Carolynn Parsons M.D. 09/07/2019 J30.1 Allergic rhinitis due to pollen Allergy Injection 09/07/2019 J30.2 Other seasonal allergic rhinitis Carolynn Parsons M.D. 09/07/2019 J30.2 Other seasonal allergic rhinitis Allergy Injection 09/07/2019 J30.81 Allergic rhinitis due to animal (cat) (dog) Carolynn Parsons M.D. hair and dander 09/07/2019 J30.81 Allergic rhinitis due to animal (cat) (dog) Allergy Injection hair and dander 09/07/2019 J30.89 Other allergic rhinitis Carolynn Parsons M.D. 09/07/2019 J30.89 Other allergic rhinitis Allergy Injection 08/31/2019 J30.1 Allergic rhinitis due to pollen Carolynn Parsons M.D. 08/31/2019 J30.1 Allergic rhinitis due to pollen Allergy Injection 08/31/2019 J30.2 Other seasonal allergic rhinitis Carolynn Parsons M.D. 08/31/2019 J30.2 Other seasonal allergic rhinitis Allergy Injection 08/31/2019 J30.81 Allergic rhinitis due to animal (cat) (dog) Carolynn Parsons M.D. hair and dander 08/31/2019 J30.81 Allergic rhinitis due to animal (cat) (dog) Allergy Injection hair and dander 08/31/2019 J30.89 Other allergic rhinitis Carolynn Parsons M.D. 08/31/2019 J30.89 Other allergic rhinitis Allergy Injection 08/24/2019 J30.1 Allergic rhinitis due to pollen Carolynn Parsons M.D. 08/24/2019 J30.1 Allergic rhinitis due to pollen Allergy Injection 08/24/2019 J30.2 Other seasonal allergic rhinitis Carolynn Parsons M.D. 08/24/2019 J30.2 Other seasonal allergic rhinitis Allergy Injection 08/24/2019 J30.81 Allergic rhinitis due to animal (cat) (dog) Carolynn Parsons M.D. hair and dander 08/24/2019 J30.81 Allergic rhinitis due to animal (cat) (dog) Allergy Injection hair and dander 08/24/2019 J30.89 Other allergic rhinitis Carolynn Parsons M.D. 08/24/2019 J30.89 Other allergic rhinitis Allergy Injection 08/18/2019 J30.1 Allergic rhinitis due to pollen Carolynn Parsons M.D. 08/18/2019 J30.1 Allergic rhinitis due to pollen Allergy Injection 08/18/2019 J30.2 Other seasonal allergic rhinitis Carolynn Parsons M.D. 08/18/2019 J30.2 Other seasonal allergic rhinitis Allergy Injection 08/18/2019 J30.81 Allergic rhinitis due to animal (cat) (dog) Carolynn Parsons M.D. hair and dander 08/18/2019 J30.81 Allergic rhinitis due to animal (cat) (dog) Allergy Injection hair and dander 08/18/2019 J30.89 Other allergic rhinitis Carolynn Parsons M.D. 08/18/2019 J30.89 Other allergic rhinitis Allergy Injection 08/10/2019 J30.1 Allergic rhinitis due to pollen Carolynn Parsons M.D. 08/10/2019 J30.1 Allergic rhinitis due to pollen Allergy Injection 08/10/2019 J30.2 Other seasonal allergic rhinitis Carolynn Parsons M.D. 08/10/2019 J30.2 Other seasonal allergic rhinitis Allergy Injection 08/10/2019 J30.81 Allergic rhinitis due to animal (cat) (dog) Carolynn Parsons M.D. hair and dander 08/10/2019 J30.81 Allergic rhinitis due to animal (cat) (dog) Allergy Injection hair and dander 08/10/2019 J30.89 Other allergic rhinitis Carolynn Parsons M.D. 08/10/2019 J30.89 Other allergic rhinitis Allergy Injection 08/03/2019 J30.1 Allergic rhinitis due to pollen Carolynn Parsons M.D. 08/03/2019 J30.1 Allergic rhinitis due to pollen Allergy Injection 08/03/2019 J30.2 Other seasonal allergic rhinitis Carolynn Parsons M.D. 08/03/2019 J30.2 Other seasonal allergic rhinitis Allergy Injection 08/03/2019 J30.81 Allergic rhinitis due to animal (cat) (dog) Carolynn Parsons M.D. hair and dander 08/03/2019 J30.81 Allergic rhinitis due to animal (cat) (dog) Allergy Injection hair and dander 08/03/2019 J30.89 Other allergic rhinitis Carolynn Parsons M.D. 08/03/2019 J30.89 Other allergic rhinitis Allergy Injection 07/27/2019 J30.1 Allergic rhinitis due to pollen Carolynn Parsons M.D. 07/27/2019 J30.1 Allergic rhinitis due to pollen Allergy Injection 07/27/2019 J30.2 Other seasonal allergic rhinitis Carolynn Parsons M.D. 07/27/2019 J30.2 Other seasonal allergic rhinitis Allergy Injection 07/27/2019 J30.81 Allergic rhinitis due to animal (cat) (dog) Carolynn Parsons M.D. hair and dander 07/27/2019 J30.81 Allergic rhinitis due to animal (cat) (dog) Allergy Injection hair and dander 07/27/2019 J30.89 Other allergic rhinitis Carolynn Parsons M.D. 07/27/2019 J30.89 Other allergic rhinitis Allergy Injection 07/20/2019 J30.1 Allergic rhinitis due to pollen Carolynn Parsons M.D. 07/20/2019 J30.1 Allergic rhinitis due to pollen Allergy Injection 07/20/2019 J30.2 Other seasonal allergic rhinitis Carolynn Parsons M.D. 07/20/2019 J30.2 Other seasonal allergic rhinitis Allergy Injection 07/20/2019 J30.81 Allergic rhinitis due to animal (cat) (dog) Carolynn Parsons M.D. hair and dander 07/20/2019 J30.81 Allergic rhinitis due to animal (cat) (dog) Allergy Injection hair and dander 07/20/2019 J30.89 Other allergic rhinitis Carolynn Parsons M.D. 07/20/2019 J30.89 Other allergic rhinitis Allergy Injection 07/13/2019 J30.1 Allergic rhinitis due to pollen Carolynn Parsons M.D. 07/13/2019 J30.1 Allergic rhinitis due to pollen Allergy Injection 07/13/2019 J30.2 Other seasonal allergic rhinitis Carolynn Parsons M.D. 07/13/2019 J30.2 Other seasonal allergic rhinitis Allergy Injection 07/13/2019 J30.81 Allergic rhinitis due to animal (cat) (dog) Carolynn Parsons M.D. hair and dander 07/13/2019 J30.81 Allergic rhinitis due to animal (cat) (dog) Allergy Injection hair and dander 07/13/2019 J30.89 Other allergic rhinitis Carolynn Parsons M.D. 07/13/2019 J30.89 Other allergic rhinitis Allergy Injection 07/07/2019 J30.1 Allergic rhinitis due to pollen Carolynn Parsons M.D. 07/07/2019 J30.1 Allergic rhinitis due to pollen Allergy Injection 07/07/2019 J30.2 Other seasonal allergic rhinitis Carolynn Parsons M.D. 07/07/2019 J30.2 Other seasonal allergic rhinitis Allergy Injection 07/07/2019 J30.81 Allergic rhinitis due to animal (cat) (dog) Carolynn Parsons M.D. hair and dander 07/07/2019 J30.81 Allergic rhinitis due to animal (cat) (dog) Allergy Injection hair and dander 07/07/2019 J30.89 Other allergic rhinitis Carolynn Parsons M.D. 07/07/2019 J30.89 Other allergic rhinitis Allergy Injection 06/28/2019 J30.1 Allergic rhinitis due to pollen Carolynn Parsons M.D. 06/28/2019 J30.1 Allergic rhinitis due to pollen Allergy Injection 06/28/2019 J30.2 Other seasonal allergic rhinitis Carolynn Parsons M.D. 06/28/2019 J30.2 Other seasonal allergic rhinitis Allergy Injection 06/28/2019 J30.81 Allergic rhinitis due to animal (cat) (dog) Carolynn Parsons M.D. hair and dander 06/28/2019 J30.81 Allergic rhinitis due to animal (cat) (dog) Allergy Injection hair and dander 06/28/2019 J30.89 Other allergic rhinitis Carolynn Parsons M.D. 06/28/2019 J30.89 Other allergic rhinitis Allergy Injection Plan of Treatment Future Appointment(s):12/22/2019 3:30 pm - Allergy Injection at [facility] Functional Status Description No Information Available Mental Status Description No Information Available Referrals Description No Information Available
[2019-12-17 13:38] VITALS: BP 119/72
--- NOTE | 2019-12-17 13:42 | UC ---
Throat Pain/Nasal Blaise HPI - HPI Summary HPI Summary: cough and fever, voice changes without thoat pain, for 2 week. children home with strep. - History of Current Complaint Chief Complaint: UCRespiratory Stated Complaint: ST Time Seen by Provider: 12/17/19 13:32 Hx Obtained From: Patient Onset/Duration: Sudden Onset, Lasting Days Severity: Mild Pain Intensity: 0 Associated Signs & Symptoms: Positive: Dysphagia, Sinus Discomfort - Allergies/Home Medications Allergies/Adverse Reactions: Allergies Allergy/AdvReac Type Severity Reaction Status Date / Time No Known Allergies Allergy Verified 12/17/19 13:38 Home Medications: Home Medications Cetirizine* [ZyrTEC 10 MG TAB*] 10 mg PO DAILY 06/27/18 [History Confirmed 12/16] Glucosamine/D3/Boswellia Jaimee [Osteo Bi-Flex Tablet] 1 each PO DAILY 12/19/18 [ History Confirmed 12/17/19] Azithromyxin VICK (NF) [Z-Vick (Zithromax) 250 mg tabs #6] 2 tab PO .TODAY, THEN 1 DAILY #6 tab 12/17/19 [Rx] predniSONE 20 mg TAB [Deltasone 20 MG TAB*] 40 mg PO DAILY #10 tab 12/17/19 [Rx] PMH/Surg Hx/FS Hx/Imm Hx Previously Healthy: Yes - Surgical History Surgical History: Yes Surgery Procedure, Year, and Place: Tonsillectomy. Left knee repair - Family History Known Family History: Positive: None, Cardiac Disease Negative: Diabetes - Social History Alcohol Use: None Substance Use Type: None Smoking Status (MU): Never Smoked Tobacco Have You Smoked in the Last Year: No - Immunization History Most Recent Tetanus Shot: UTD Vaccination Up to Date: Yes Review of Systems All Other Systems Reviewed And Are Negative: Yes ENT: Positive: Sore Throat Is Patient Immunocompromised?: No Physical Exam Triage Information Reviewed: Yes Appearance: Well-Nourished, Ill-Appearing, Pain Distress Vital Signs: Initial Vital Signs Temp 97.5 F 12/17/19 13:33 Pulse 90 12/17/19 13:33 Resp 18 12/17/19 13:33 BP 119/72 12/17/19 13:33 Pulse Ox 100 12/17/19 13:33 Vital Signs Reviewed: Yes Eye Exam: Normal ENT: Positive: Pharyngeal erythema - with PND, TM bulging, TM red Dental Exam: Normal Neck exam: Normal Respiratory: Positive: Chest non-tender, Lungs clear, Normal breath sounds Cardiovascular Exam: Normal Cardiovascular: Positive: RRR, No Murmur, Pulses Normal Bowel Sounds: Positive: Present Musculoskeletal Exam: Normal Neurological Exam: Normal Psychological Exam: Normal Skin Exam: Normal Throat Pain/Nasal Course/Dx - Course Course Of Treatment: hx obtained, exam performed, meds reviewed, rapid strep obtained. - Differential Dx/Diagnosis Differential Diagnosis/HQI/PQRI: Influenza, Pharyngitis, Sinusitis Provider Diagnosis: Sinusitis Discharge ED - Sign-Out/Discharge Documenting (check all that apply): Patient Departure All imaging exams completed and their final reports reviewed: No Studies - Discharge Plan Condition: Stable Disposition: HOME Prescriptions: Azithromyxin VICK (NF) [Z-Vick (Zithromax) 250 mg tabs #6] 2 tab PO .TODAY, THEN 1 DAILY #6 tab predniSONE 20 mg TAB [Deltasone 20 MG TAB*] 40 mg PO DAILY #10 tab Patient Education Materials: Sinusitis (ED) Referrals: Jessica Boswell MD [Primary Care Provider] - Additional Instructions: 1. take the medication as prescribed. 2. Increase fluids and get rest. #. salt water gargles and tylenol as needed. - Billing Disposition and Condition Condition: STABLE Disposition: Home - Attestation Statements Provider Attestation: Per institutional requirements, I have reviewed the chart, however, I was not consulted specifically or made aware of this patient by the midlevel provider. I did not personally evaluate, interact with, or disposition this patient. EK
== END 2019-12-17 14:06 | disposition home or self-care (01) ==
LOC: UCCORT 13:05
DX: J32.9 Chronic sinusitis, unspecified (principal)
CPT/HCPCS: 87651; 99212; G0463